=== PATIENT | female | born 1995 | race Caucasian/White ===

== ENCOUNTER 2017-09-30 11:25 | Emergency (ER) | payer OTHER, MEDICAID ==
[2017-09-30] MEDS ORDERED: Ondansetron 4 MG/2 ML SDV IVPUSH ONE (11:56)
[2017-09-30] MEDS ORDERED: Sodium Chloride 0.9% 1,000 ML IV ONE (11:56)
[2017-09-30] MEDS ORDERED: Sodium Chloride 0.9% 10 ML Syringe FLUSH PRN (11:56)
--- NOTE | 2017-09-30 12:34 | EDM.PDOC ---
ED HPI GENERAL MEDICAL PROBLEM - General Chief Complaint: Gastrointestinal Problem Stated Complaint: VOMITING Time Seen by Provider: 09/30/17 11:40 Source of Information: Reports: Patient History Limitations: Reports: No Limitations - History of Present Illness INITIAL COMMENTS - FREE TEXT/NARRATIVE: 22-year-old female presents for evaluation treatment of nausea, vomiting and diarrhea. Patient reports that she's been experiencing this for the last 3 days. States that she vomited 4 times today. She is vomiting up mostly mucus and foam. Reports this morning her emesis was blood tinged. She states she does not have much appetite and has not been eating much. Reports smells make her nauseous. Patient reports that she is having diarrhea frequently. No bloody stools. She reports a associated abdominal discomfort, chills and diaphoresis. She questions a she's been having a fever but did not check her temperature. No cough. 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 Patient did get a flu shot this year. Unsure of last menstrual period. Reports a history of endometriosis and irregular menstrual cycles. Upper Abdomen Pain Score (Numeric/FACES): 9 - Related Data Allergies Allergy/AdvReac Type Severity Reaction Status Date / Time No Known Allergies Allergy Verified 09/30/17 11:43 Home Meds: Home Meds . 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 Denies: Fever (unsure, did not check temp) Respiratory: Denies: Cough GI/Abdominal: Reports: Abdominal Pain (cramping), Diarrhea, Nausea, Vomiting ( x4 times today) ED EXAM, GI/ABD - Physical Exam Exam: See Below Exam Limited By: No Limitations General Appearance: Alert, WD/WN, No Apparent Distress Respiratory/Chest: No Respiratory Distress, Lungs Clear, Normal Breath Sounds Cardiovascular: Normal Peripheral Pulses, Regular Rate, Rhythm, No Murmur GI/Abdominal Exam: Normal Bowel Sounds, Soft, Non-Tender Neurological: Alert, Oriented, Normal Cognition Psychiatric: Normal Affect, Normal Mood Skin Exam: Warm, Dry, Normal Color Course - Vital Signs Last Recorded V/S: Last Vital Signs Temp 36.4 C 09/30/17 11:42 Pulse 65 09/30/17 11:42 Resp 20 09/30/17 11:42 BP 115/77 09/30/17 11:42 Pulse Ox 99 09/30/17 11:42 - Orders/Labs/Meds Orders: Active Orders 24 hr Category Date Time Status Peripheral IV Care [RC] . DIRECTED Care 09/30/17 11:56 Active Peripheral IV Insertion Adult [OM.PC] Routine Oth 09/30/17 11:56 Ordered Labs: Laboratory Tests 09/30/17 09/30/17 09/30/17 Range/Units 12:15 12:15 12:15 WBC 8.08 (3.98-10.04) K/mm3 RBC 4.57 (3.98-5.22) M/mm3 Hgb 14.1 (11.2-15.7) gm/L Hct 41.4 (34.1-44.9) % MCV 90.6 (79.4-94.8) fl MCH 30.9 (25.6-32.2) pg MCHC 34.1 (32.2-35.5) g/dl RDW Std Deviation 41.9 (36.4-46.3) fL Plt Count 188 (182-369) K/mm3 MPV 12.3 (9.4-12.3) fl Neut % (Auto) 75.2 H (34.0-71.1) % Lymph % (Auto) 15.7 L (19.3-51.7) % [place] % (Auto) 8.5 (4.7-12.5) % Eos % (Auto) 0.4 L (0.7-5.8) Baso % (Auto) 0.0 L (0.1-1.2) % Neut # (Auto) 6.07 (1.56-6.13) K/mm3 Lymph # (Auto) 1.27 (1.18-3.74) K/mm3 Ellsworth # (Auto) 0.69 H (0.24-0.36) K/mm3 Eos # (Auto) 0.03 L (0.04-0.36) K/mm3 Baso # (Auto) 0.00 L (0.01-0.08) K/mm3 Sodium 141 (136-145) mEq/L Potassium 4.2 (3.5-5.1) mEq/L Chloride 106 (98-107) mEq/L Carbon Dioxide 25 (21-32) mEq/L Anion Gap 14.2 (5-15) BUN 13 (7-18) mg/dL Creatinine 0.7 (0.55-1.02) mg/dL Est Cr Clr Drug Dosing 101.39 mL/min Estimated GFR (MDRD) > 60 (>60) mL/min BUN/Creatinine Ratio 18.6 H (14-18) Glucose 98 (74-106) mg/dL Calcium 9.2 (8.5-10.1) mg/dL Total Bilirubin 0.5 (0.2-1.0) mg/dL AST 20 (15-37) U/L ALT 25 (14-59) U/L Alkaline Phosphatase 44 L (46-116) U/L Total Protein 7.0 (6.4-8.2) g/dl Albumin 4.2 (3.4-5.0) g/dl Globulin 2.8 gm/dL Albumin/Globulin Ratio 1.5 (1-2) HCG, Qual Positive H (NEGATIVE) HCG, Quant mIU/mL 09/30/17 Range/Units 12:15 WBC (3.98-10.04) K/mm3 RBC (3.98-5.22) M/mm3 Hgb (11.2-15.7) gm/L Hct (34.1-44.9) % MCV (79.4-94.8) fl MCH (25.6-32.2) pg MCHC (32.2-35.5) g/dl RDW Std Deviation (36.4-46.3) fL Plt Count (182-369) K/mm3 MPV (9.4-12.3) fl Neut % (Auto) (34.0-71.1) % Lymph % (Auto) (19.3-51.7) % Ellsworth % (Auto) (4.7-12.5) % Eos % (Auto) (0.7-5.8) Baso % (Auto) (0.1-1.2) % Neut # (Auto) (1.56-6.13) K/mm3 Lymph # (Auto) (1.18-3.74) K/mm3 Ellsworth # (Auto) (0.24-0.36) K/mm3 Eos # (Auto) (0.04-0.36) K/mm3 Baso # (Auto) (0.01-0.08) K/mm3 Sodium (136-145) mEq/L Potassium (3.5-5.1) mEq/L Chloride (98-107) mEq/L Carbon Dioxide (21-32) mEq/L Anion Gap (5-15) BUN (7-18) mg/dL Creatinine (0.55-1.02) mg/dL Est Cr Clr Drug Dosing mL/min Estimated GFR (MDRD) (>60) mL/min BUN/Creatinine Ratio (14-18) Glucose (74-106) mg/dL Calcium (8.5-10.1) mg/dL Total Bilirubin (0.2-1.0) mg/dL AST (15-37) U/L ALT (14-59) U/L Alkaline Phosphatase (46-116) U/L Total Protein (6.4-8.2) g/dl Albumin (3.4-5.0) g/dl Globulin gm/dL Albumin/Globulin Ratio (1-2) HCG, Qual (NEGATIVE) HCG, Quant 15743.0 mIU/mL Meds: Medications Discontinued Medications Generic Name Dose Route Start Last Admin Trade Name Freq PRN Reason Stop Dose Admin Sodium Chloride 1,000 mls @ 999 mls/hr 09/30/17 11:56 09/30/17 12:16 Normal Saline IV 09/30/17 12:56 999 mls/hr ONETIME ONE Administration Ondansetron HCl 4 mg 09/30/17 11:56 09/30/17 12:16 Zofran IVPUSH 09/30/17 11:57 4 mg ONETIME ONE Administration Sodium Chloride 10 ml 09/30/17 11:56 09/30/17 12:17 Saline Flush FLUSH 10 ml ASDIRECTED PRN Administration Keep Vein Open - Re-Assessments/Exams Free Text/Narrative Re-Assessment/Exam: 09/30/17 14:00 I reviewed the lab results with the patient. Feels improved after getting fluids and some Zofran. I informed her that she is with a quantitative over 30,000. She is likely at least 4 weeks , however, she will need an ultrasound to confirm exactly far along she is. We'll have her follow-up with OB this week. I gave her a sheet of medications that are safe during . Will discharge home at this time. Discharge instructions as documented. Departure - Departure Time of Disposition: 14:01 Disposition: Home, Self-Care 01 Condition: Fair Clinical Impression: - Discharge Information Instructions: First Trimester of Referrals: PCP,None [Primary Care Provider] - Alexus Burgos MD [Physician] - Forms: ED Department Discharge, ED Return to Work/School Form Additional Instructions: I encourage you to start a vitamin. Use the sheet provided for medications that are safe in . Do not take ibuprofen or NSAIDs. May take Tylenol as a for pain. Follow-up with OB this week. Please call [phone] Donnelly. Avoid alcohol, cigarettes and illicit drugs. Please return to the ER if your symptoms change or worsen. - My Orders Last 24 Hours: My Active Orders 09/30/17 11:56 Peripheral IV Care [RC] . DIRECTED Peripheral IV Insertion Adult [OM.PC] Routine - Assessment/Plan Last 24 Hours: My Active Orders 09/30/17 11:56 Peripheral IV Care [RC] . DIRECTED Peripheral IV Insertion Adult [OM.PC] Routine
== END 2017-09-30 14:18 | disposition home or self-care (01) ==
LOC: JD.ED 11:25
DX: O21.9 Vomiting of pregnancy, unspecified (principal); R19.7 Diarrhea, unspecified
CPT/HCPCS: 36415; 80053; 84702; 84703; 85025; 87804; 96361; 96374; 99284; J2405; J7040; J7050

== ENCOUNTER 2019-04-10 04:00 | Emergency (ER) | payer OTHER ==
[2019-04-10] MEDS ORDERED: Metoclopramide 10 MG/2 ML SDV IVPUSH ONE (04:18)
[2019-04-10] MEDS ORDERED: HYDROmorphone 0.5 MG/0.5 ML Syringe IVPUSH ONE (04:19)
--- NOTE | 2019-04-10 04:23 | EDM.PDOC ---
ED HPI GENERAL MEDICAL PROBLEM - General Chief Complaint: Gastrointestinal Problem Stated Complaint: VOMITING Time Seen by Provider: 04/10/19 04:18 Source of Information: Reports: Patient, Family (friend) History Limitations: Reports: No Limitations - History of Present Illness INITIAL COMMENTS - FREE TEXT/NARRATIVE: 24-year-old female presents to the ED with acute onset of nausea vomiting and diarrhea. Patient awoke from sleep about 0130 hrs. this morning with vomiting for about a half an hour and then developing diarrhea. She estimates that she's vomited greater than 12 times and has seen a few flecks of blood with the last few emeses. Diarrhea is large-volume yellow fluid loss. She feels lightheaded dizzy. Secondly she started her period tonight and is experiencing a good deal of lower abdominal cramping pain which appears to be most likely menstrual in origin. 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 She and her significant other 8 out yesterday at a local [employer] and he did not become sick. She doesn't believe that she is but is not using any control. Onset: Today Onset Date: 04/10/19 Onset Time: 01:30 Duration: Hour(s): Location: Reports: Abdomen (nausea vomiting diarrhea) Quality: Reports: Ache, Sharp, Stabbing, Other Severity: Severe (Strong colicky component to the lower abdominal pain 9 out of 10) Improves with: Reports: None Worsens with: Reports: None Context: Denies: Activity, Exercise, Lifting, Sick Contact, Trauma, Other Associated Symptoms: Reports: Fever/Chills, Nausea/Vomiting, Other (Lower abdominal cramping pain and start of menstrual cycle.) Treatments CHAPERON: Reports: Other (see below) (Nothing will stay down.) Epigastric Pain Score (Numeric/FACES): 8 - Related Data Allergies Allergy/AdvReac Type Severity Reaction Status Date / Time No Known Allergies Allergy Verified 07/05/18 10:28 Home Meds: Home Meds Dicyclomine [Bentyl] 20 mg PO Q6H PRN #5 tablet 04/10/19 [Rx] Ondansetron [Zofran] 4 mg BUCCAL Q6H PRN #5 tab 04/10/19 [Rx] 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 - Past Surgical History HEENT Surgical History: Reports: Myringotomy w Tube(s) Female Surgical History: Reports: Other (See Below) Social & Family History - Family History Family Medical History: Noncontributory - Tobacco Use Smoking Status *Q: Never Smoker - Caffeine Use Caffeine Use: Reports: Coffee, Energy Drinks, Soda, Tea - Recreational Drug Use Recreational Drug Use: No - Living Situation & Occupation Living situation: Reports: Single, Other (with friends) Occupation: Student ([employer]) ED ROS GENERAL - Review of Systems Review Of Systems: See Below Constitutional: Reports: Fever, Chills, Malaise, Weakness, Fatigue, Decreased Appetite HEENT: Reports: No Symptoms Respiratory: Reports: No Symptoms Cardiovascular: Reports: No Symptoms Endocrine: Reports: No Symptoms GI/Abdominal: Reports: Abdominal Pain, Diarrhea, Nausea (See history present illness), Vomiting : Reports: Other (Started her period 2 hours ago as well. She believes it's about on time. She is sexually active and is not using any form of control ) Musculoskeletal: Reports: Back Pain Skin: Reports: No Symptoms (Mild diffuse low back pain) Neurological: Reports: No Symptoms Psychiatric: Reports: No Symptoms Hematologic/Lymphatic: Reports: No Symptoms Immunologic: Reports: No Symptoms ED EXAM, GI/ABD - Physical Exam Exam: See Below Exam Limited By: No Limitations General Appearance: Alert, WD/WN, Moderate Distress, Other (Prefers to lay in the left lateral decubitus position and position.) Eyes: Bilateral: Normal Appearance (No scleral icterus.) Throat/Mouth: Normal Inspection, Normal Lips, Normal Oropharynx Head: Atraumatic, Normocephalic Neck: Normal Inspection, Supple, Non-Tender, Full Range of Motion. No: Lymphadenopathy (L), Lymphadenopathy (R) Respiratory/Chest: No Respiratory Distress, Lungs Clear, Normal Breath Sounds, No Accessory Muscle Use, Chest Non-Tender Cardiovascular: Normal Peripheral Pulses, Regular Rate, Rhythm, No Edema, No Murmur, No Rub GI/Abdominal Exam: Tender (Tender in the epigastrium and suprapubically with), Abnormal Bowel Sounds (Mildly hyperactive bowel sounds.), Other (No peritoneal signs.). No: Guarding ( mild guarding suprapubically.), Rigid, Rebound Back Exam: Normal Inspection, Full Range of Motion. No: CVA Tenderness (L), CVA Tenderness (R) Extremities: Normal Inspection, Normal Range of Motion, Non-Tender Neurological: Alert, Oriented, CN II-XII Intact, Normal Cognition Psychiatric: Anxious, Other Skin Exam: Warm, Dry (In a good deal of discomfort.), Intact, No Rash, Pallor ( Mildly pallid.) Course - Vital Signs Last Recorded V/S: Last Vital Signs Temp 36.9 C 04/10/19 04:07 Pulse 78 04/10/19 04:07 Resp 18 04/10/19 04:07 BP 117/47 L 04/10/19 04:07 Pulse Ox 94 L 04/10/19 04:07 - Orders/Labs/Meds Orders: Active Orders 24 hr Category Date Time Status Dextrose 5%-0.9% NaCl [Dextrose 5%-Normal Saline] 1,000 Med 04/10/19 04:30 Active ml IV ASDIRECTED Ketorolac [Toradol] Med 04/10/19 04:30 Active 30 mg IVPUSH ONETIME Medication Orders Dextrose/Sodium Chloride (Dextrose 5%-Normal Saline) 1,000 mls @ 999 mls/hr IV ASDIRECTED RAFAEL Last Admin: 04/10/19 04:38 Dose: 999 mls/hr Ketorolac Tromethamine (Toradol) 30 mg IVPUSH ONETIME RAFAEL Last Admin: 04/10/19 04:38 Dose: 30 mg Labs: Laboratory Tests 04/10/19 04/10/19 04/10/19 Range/Units 04:30 04:30 04:30 WBC 8.94 (3.98-10.04) K/mm3 RBC 4.53 (3.98-5.22) M/mm3 Hgb 14.1 (11.2-15.7) gm/L Hct 40.8 (34.1-44.9) % MCV 90.1 (79.4-94.8) fl MCH 31.1 (25.6-32.2) pg MCHC 34.6 (32.2-35.5) g/dl RDW Std Deviation 41.1 (36.4-46.3) fL Plt Count 194 (182-369) K/mm3 MPV 11.6 (9.4-12.3) fl Neutrophils % (Manual) 78 H (40-60) % Band Neutrophils % 0 (0-10) % Lymphocytes % (Manual) 13 L (20-40) % Atypical Lymphs % 0 % Monocytes % (Manual) 9 (2-10) % Eosinophils % (Manual) 0 L (0.7-5.8) % Basophils % (Manual) 0 L (0.1-1.2) Platelet Estimate Adequate Plt Morphology Comment Normal RBC Morph Comment Normal Sodium 142 (136-145) mEq/L Potassium 3.7 (3.5-5.1) mEq/L Chloride 105 (98-107) mEq/L Carbon Dioxide 23 (21-32) mEq/L Anion Gap 17.7 H (5-15) BUN 13 (7-18) mg/dL Creatinine 0.7 (0.55-1.02) mg/dL Est Cr Clr Drug Dosing 104.28 mL/min Estimated GFR (MDRD) > 60 (>60) mL/min BUN/Creatinine Ratio 18.6 H (14-18) Glucose 107 H (74-106) mg/dL Calcium 8.8 (8.5-10.1) mg/dL Total Bilirubin 0.3 (0.2-1.0) mg/dL AST 25 (15-37) U/L ALT 25 (14-59) U/L Alkaline Phosphatase 49 (46-116) U/L C-Reactive Protein < 0.2 (<1.0) mg/dL Total Protein 7.3 (6.4-8.2) g/dl Albumin 4.1 (3.4-5.0) g/dl Globulin 3.2 gm/dL Albumin/Globulin Ratio 1.3 (1-2) HCG, Qual Negative (NEGATIVE) Meds: Medications Generic Name Dose Route Start Last Admin Trade Name Freq PRN Reason Stop Dose Admin Dextrose/Sodium Chloride 1,000 mls @ 999 mls/hr 04/10/19 04:30 04/10/19 04:38 Dextrose 5%-Normal Saline IV 999 mls/hr ASDIRECTED RAFAEL Administration Ketorolac Tromethamine 30 mg 04/10/19 04:30 04/10/19 04:38 Toradol IVPUSH 30 mg ONETIME RAFAEL Administration Discontinued Medications Generic Name Dose Route Start Last Admin Trade Name Freq PRN Reason Stop Dose Admin Hydromorphone HCl 0.5 mg 04/10/19 04:19 04/10/19 04:38 Dilaudid IVPUSH 04/10/19 04:20 0.5 mg ONETIME ONE Administration Metoclopramide HCl 7.5 mg 04/10/19 04:18 04/10/19 04:38 Reglan IVPUSH 04/10/19 04:19 7.5 mg ONETIME ONE Administration - Radiology Interpretation Free Text/Narrative:: 24-year-old female presents to the ED acute onset of nausea vomiting and diarrhea following 30 minutes later. It woke her from sleep at about 0130 hrs. this morning. She went to bed feeling fine. 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 She estimated she's vomited greater than 12 times and is at 6 large volume stool losses. Tongue is very dry and coated. Plan D5 normal saline at open. Reglan 7.5 mg IV with Toradol 30 mg IV and Dilaudid 0.5 mg IV for relief of lower abdominal cramping pain which I believe is most likely menstrual in origin. Routine labs will be ordered including a serum beta-hCG - Re-Assessments/Exams Free Text/Narrative Re-Assessment/Exam: 04/10/19 05:35 Labs reveal a normal white count at 8.94. Differential is 70% neutrophils with no band cells reported. Hemoglobin is 14.1 with hematocrit of 40.8. Platelet count is 194,000. Sodium 142 with a potassium of 3.7. Chloride is 105 with a bicarbonate of 23. And a gap was elevated at 17.7. BUN was 13 with a creatinine of 0.7. GFR is greater than 60. BUN/creatinine ratio was 18.6 slightly elevated. Glucose is 107. Calcium is 8.8. Total bilirubin is 0.3. Liver function otherwise normal. C-reactive protein is less than 0.2. Beta hCG is negative .She is feeling much better. Has about 200 mils of IV fluids left and then she will be discharged to home. She she's had no further nausea vomiting or diarrhea since being in the ED. Diet to be clear fluids such as Gatorade Powerade and when hungry she may advance to Jell-O/crackers. She is to avoid all dairy products and no apple juice or grape juice until stools are formed backup. No will be given to excuse her from the workplace today and tomorrow. Will send her home with prescription for Zofran 4 mg sublingually every 4-6 hours. As necessary for nausea vomiting 5 tablets. Bentyl 20 mg tablet every 6 hours as needed for relief of down cramping pain or diarrhea. Departure - Departure Time of Disposition: 05:37 Disposition: Home, Self-Care 01 Condition: Fair Clinical Impression: Viral gastroenteritis - Discharge Information *PRESCRIPTION DRUG MONITORING PROGRAM REVIEWED*: Not Applicable *COPY OF PRESCRIPTION DRUG MONITORING REPORT IN PATIENT [place]: Not Applicable Prescriptions: Dicyclomine [Bentyl] 20 mg PO Q6H PRN #5 tablet PRN Reason: Abdominal cramps/diarrhea Ondansetron [Zofran] 4 mg BUCCAL Q6H PRN #5 tab PRN Reason: nausea or vomiting Instructions: Viral Gastroenteritis, Adult, [id number] Referrals: PCP,None [Primary Care Provider] - Forms: ED Department Discharge, ED Return to Work/School Form Additional Instructions: Evaluation the emergency room this morning in regards to development of nausea vomiting and diarrhea. Lab work suggests this is viral in origin. You're mildly dehydrated. You're treated with a liter of IV fluids while in the department and medications Reglan 7.5 mg to arrest vomiting with Dilaudid 0.5 mg for relief of abdominal cramping pain and Toradol 30 mg also for relief of abdominal pain. Treatment at home today is Zofran 4 mg under the tongue every 4- 6 hours as necessary for relief of nausea or vomiting. Suggest Bentyl 20 mg tablet to be taken every 6 hours as necessary for relief of abdominal cramping pain and/or further diarrhea. The vomiting component has been lasting up to 16 hours. Diarrhea up to 3 days. Suggest diet to be clear fluids today such as Gatorade/Powerade ideally 4-5 ounces sipped per hour. When hungry try soda crackers first. If tolerated may advance to Jell-O at any time. May then advance to read with jam on it or closed. If tolerated may then advance to cough syrups or chicken noodle/turkey rice soup broth. Avoid all dairy products and no altitudes or grape juice until stools are formed backup which will usually be about 4 days. Given to excuse her from the workplace today and tomorrow due to current illness. Return to medical care if any further problems occur or you are not markedly improved in 48 hours time - My Orders Last 24 Hours: My Active Orders 04/10/19 04:30 Dextrose 5%-0.9% NaCl [Dextrose 5%-Normal Saline] 1,000 ml IV ASDIRECTED Ketorolac [Toradol] 30 mg IVPUSH ONETIME - Assessment/Plan Last 24 Hours: My Active Orders 04/10/19 04:30 Dextrose 5%-0.9% NaCl [Dextrose 5%-Normal Saline] 1,000 ml IV ASDIRECTED Ketorolac [Toradol] 30 mg IVPUSH ONETIME
[2019-04-10] MEDS ORDERED: Dextrose 5%-0.9% NaCl 1,000 ML IV SCH (04:30)
[2019-04-10] MEDS ORDERED: Ketorolac 30 MG/ML SDV IVPUSH SCH (04:30)
== END 2019-04-10 05:53 | disposition home or self-care (01) ==
LOC: JD.ED 04:00
DX: A08.4 Viral intestinal infection, unspecified (principal)
CPT/HCPCS: 36415; 80053; 84703; 85007; 85027; 86140; 96361; 96374; 96375; 99283; J1170; J1885; J2765; J7042; 99284